=== PATIENT | female | born 1970 | race Asian ===

== ENCOUNTER → 2021-01-08 07:51 | Outpatient (CLI) | payer OTHER, SELFPAY ==
[2021-01-08 09:36] LABS: Add Manual Diff / Slide Review NO; Basophils Absolute Auto 100 /uL (0-100); Basophils Percent Auto 0.9 % (0-2); Eosinophils Absolute Auto 100 /uL (0-450); Eosinophils Percent Auto 1.6 % (2-4); Hematocrit 40.5 % (36-46); Hemoglobin 13.3 g/dL (12.0-16.0); Lymphocytes Absolute Auto 2000 /uL (1100-4500); Lymphocytes Percent Auto 33.8 % (25-40); Mean Corpuscular HGB Conc 32.8 % (30-36); Mean Corpuscular Volume 85.1 fL (80-100); Monocytes Absolute Auto 400 /uL (0-900); Monocytes Percent Auto 6.1 % (3-14); Neutrophils Absolute Auto 3400 /uL (1500-7000); Neutrophils Percent Auto 57.6 % (50-75); Platelet Count 413 X10^3/uL (150-400); Red Blood Cell Count 4.76 X10^6/uL (4.0-5.2); Red Cell Distribution Width 13.7 % (11.6-14.8); White Blood Cell Count 5.9 X10^3/uL (4.5-11.0)
[2021-01-08 09:56] LABS: Alanine Aminotransferase 21 IU/L (<35); Albumin 4.3 g/dL (3.5-5.0); Albumin Globulin Ratio 1.2 (1.0-2.8); Alkaline Phosphatase 88 U/L (38-126); Aspartate Aminotransferase 29 IU/L (14-36); BUN Creatinine Ratio 18.7 (6-22); Bilirubin Total 0.6 mg/dL (0.2-1.3); Blood Urea Nitrogen 14 mg/dL (7-17); Calcium 9.4 mg/dL (8.4-10.2); Carbon Dioxide 31 mmol/L (22-32); Chloride 103 mmol/L (98-107); Cholesterol 216 mg/dL (140-199); Estimated Glomerular Filt Rate > 60.0 mL/min (>60); Globulin 3.6 g/dL (1.7-4.1); Glucose 97 mg/dL (70-100); HDL Cholesterol 60 mg/dL (40-60); HEMOLYSIS < 15 (0-50); LDL Cholesterol Calculated 142 mg/dL (<100); Potassium 4.2 mmol/L (3.4-5.1); Sodium 137 mmol/L (137-145); Total Protein 7.9 g/dL (6.3-8.2); Triglycerides 71 mg/dL (35-150)
[2021-01-10 22:40] LABS: Estrogen 180 pg/mL (.)
[2021-01-24 13:39] LABS: % Free Progesterone 2.5 % (.); Free Progesterone 1.5 ng/dL (.); Progesterone, Serum 59 ng/dL (.)
== END ==
PROVIDERS: PCP Family Medicine; Referring Provider Family Medicine; Visit Provider Family Medicine
DX: R87.619 Unspecified abnormal cytological findings in specimens from cervix uteri (principal); R53.83 Other fatigue; R63.5 Abnormal weight gain; N92.0 Excessive and frequent menstruation with regular cycle
CPT/HCPCS: 36415; 80053; 80061; 82672; 84144; 84443; 84999; 85025

== ENCOUNTER → 2021-01-16 09:04 | Outpatient (CLI) | payer OTHER, SELFPAY ==
--- NOTE | 2021-01-16 09:05 | DI.US.S_ITS ---
PROCEDURE: US PELVIC COMPLETE INDICATIONS: DUB TECHNIQUE: Real-time scanning was performed of the pelvic organs, with image documentation. Additional endovaginal scanning was necessary due to incomplete visualization of the adnexal and endometrial structures by transabdominal scanning. COMPARISON: None. FINDINGS: Uterus: Uterus is enlarged in size at 9.5 x 4.3 x 7.0 cm. The endometrium measures 11.8 mm in combined thickness. There are 2 intramural fibroids, largest measuring 2.5 x 2.1 x 2.6 cm and the smaller 1.6 x 1.2 x 1.7 cm. Ovaries: Normal ovaries measuring 1.6 x 0.9 x 2.1 cm on the right and 2.0 x 1.3 x 2.3 cm on the left. No adnexal masses. Other: No pathologic free abdominal or pelvic fluid. IMPRESSION: Enlarged uterus and there are 2 intramural fibroids, largest measuring up to 2.6 cm. Dictated by: Danyel GARCIA Interpreted: Ivonne Mcmullen MD on 01/16/2021 at 10:39 Approved by: Ivonne Mcmullen M.D. on 01/16/2021 at 10:54
== END ==
PROVIDERS: PCP Family Medicine; Referring Provider Family Medicine; Visit Provider Family Medicine
DX: N92.0 Excessive and frequent menstruation with regular cycle (principal); D25.1 Intramural leiomyoma of uterus; N85.2 Hypertrophy of uterus
CPT/HCPCS: 76830; 76856

== ENCOUNTER → 2021-03-12 10:01 | Outpatient (CLI) | payer OTHER, SELFPAY ==
[2021-03-12 11:57] LABS: Cancer Antigen 125 7.8 U/mL (0-35)
[2021-03-15 00:44] LABS: Human Epididymis Prot 4 47.1 pmol/L (0.0-63.6)
== END ==
PROVIDERS: PCP Family Medicine; Referring Provider Obstetrics & Gynecology; Visit Provider Obstetrics & Gynecology
DX: R10.2 Pelvic and perineal pain (principal)
CPT/HCPCS: 36415; 86304; 86305

== ENCOUNTER → 2021-10-06 09:47 | Outpatient (CLI) | payer OTHER, SELFPAY ==
--- NOTE | 2021-10-06 09:48 | DI.MG.S_ITS ---
BILATERAL DIGITAL SCREENING MAMMOGRAM 3D/2D WITH CAD: 10/06/2021 CLINICAL: Routine screening. Comparison is made to exams dated: 02/16/2020 mammogram, 02/28/2020 mammogram, and 10/16/2020 mammogram - [facility]. The tissue of both breasts is heterogeneously dense. This may lower the sensitivity of mammography. Current study was also evaluated with a Computer Aided Detection (CAD) system. No significant masses, calcifications, or other findings are seen in either breast. There has been no significant interval change. IMPRESSION: NEGATIVE There is no mammographic evidence of malignancy. A 1 year screening mammogram is recommended. This exam was interpreted at Station ID: [id number]. NOTE: For mammograms, a report in lay terms will be sent to the patient. Approximately 15% of breast malignancies will not be visualized mammographically. In the management of a palpable breast mass, a negative mammogram must not discourage biopsy of a clinically suspicious lesion. Electronically Signed By: Clark walters/asad:10/08/2021 09:01:28 letter sent: Normal Exam ACR BI-RADS Category 1: Negative 3341F
== END ==
PROVIDERS: PCP Family Medicine; Referring Provider Family Medicine; Visit Provider Family Medicine
DX: Z12.31 Encounter for screening mammogram for malignant neoplasm of breast (principal)
CPT/HCPCS: 77063; 77067

== ENCOUNTER → 2022-04-30 16:13 | Outpatient (CLI) | payer OTHER, SELFPAY ==
--- NOTE | 2022-04-30 16:18 | DI.RAD.S_ITS ---
PROCEDURE: XR KNEE LT 3V INDICATIONS: chronic left knee pain TECHNIQUE: 3 views of the knee were acquired. COMPARISON: None. FINDINGS: Bones: No fractures or dislocations. No suspicious bony lesions. Soft tissues: No joint effusion. No suspicious soft tissue calcifications. IMPRESSION: No radiographic abnormalities. Dictated by: Veronica Dalal M.D. on 04/30/2022 at 16:49 Approved by: Veronica Dalal M.D. on 04/30/2022 at 16:49
== END ==
PROVIDERS: PCP Family Medicine; Referring Provider Family Medicine; Visit Provider Family Medicine
DX: M25.562 Pain in left knee (principal)
CPT/HCPCS: 73562

== ENCOUNTER → 2022-05-02 12:12 | Outpatient (CLI) | payer OTHER, SELFPAY ==
[2022-05-02 13:18] LABS: Add Manual Diff / Slide Review NO; Basophils Absolute Auto 100 /uL (0-100); Basophils Percent Auto 0.9 % (0-2); Eosinophils Absolute Auto 100 /uL (0-450); Eosinophils Percent Auto 1.4 % (2-4); Hematocrit 38.7 % (36-46); Lymphocytes Absolute Auto 2500 /uL (1100-4500); Lymphocytes Percent Auto 36.3 % (25-40); Mean Corpuscular HGB Conc 33.6 % (30-36); Mean Corpuscular Hemoglobin 28.6 PG (26-34); Monocytes Absolute Auto 500 /uL (0-900); Neutrophils Absolute Auto 3800 /uL (1500-7000); Neutrophils Percent Auto 54.4 % (50-75); Platelet Count 364 X10^3/uL (150-400); Red Blood Cell Count 4.56 X10^6/uL (4.0-5.2); Red Cell Distribution Width 13.3 % (11.6-14.8)
[2022-05-02 13:58] LABS: Erythrocyte Sedimentation Rate 7 MM/HR (0-20)
[2022-05-02 14:31] LABS: Alanine Aminotransferase 30 IU/L (<35); Albumin 4.4 g/dL (3.5-5.0); Albumin Globulin Ratio 1.4 (1.0-2.8); Alkaline Phosphatase 93 U/L (38-126); Aspartate Aminotransferase 36 IU/L (14-36); BUN Creatinine Ratio 22.2 (6-22); Bilirubin Total 0.7 mg/dL (0.2-1.3); Blood Urea Nitrogen 18 mg/dL (7-17); C-Reactive Protein Quant < 0.5 mg/dL (<1.0); Calcium 9.3 mg/dL (8.4-10.2); Carbon Dioxide 26 mmol/L (22-32); Chloride 103 mmol/L (98-107); Cholesterol 235 mg/dL (140-199); Estimated Glomerular Filt Rate > 60 mL/min (>60); Globulin 3.1 g/dL (1.7-4.1); Glucose 90 mg/dL (70-100); HDL Cholesterol 74 mg/dL (40-60); HEMOLYSIS < 15 (0-50); LDL Cholesterol Calculated 148 mg/dL (<100); Potassium 4.5 mmol/L (3.4-5.1); Sodium 137 mmol/L (137-145); Total Protein 7.5 g/dL (6.3-8.2); Triglycerides 63 mg/dL (35-150); Uric Acid 6.4 mg/dL (2.5-6.2)
[2022-05-02 14:33] LABS: Rheumatoid Factor < 8.6 IU/mL (<12.0)
[2022-05-02 14:56] LABS: TSH w/ Reflex to FT4 2.62 uIU/mL (0.47-4.68)
[2022-05-02 15:18] LABS: Creatinine Urine Random 147.8 mg/dL
[2022-05-02 15:23] LABS: Microalbumi Creatinin Ratio Ur 5.4 ug/mg CR (<30); Microalbumin Urine Random 0.8 mg/dL (0-1.6)
[2022-05-06 17:59] LABS: ANA Screen, IFA Positive (.)
== END ==
PROVIDERS: PCP Family Medicine; Referring Provider Family Medicine; Visit Provider Family Medicine
DX: E78.5 Hyperlipidemia, unspecified (principal); K64.9 Unspecified hemorrhoids; N92.1 Excessive and frequent menstruation with irregular cycle; R53.83 Other fatigue; R63.5 Abnormal weight gain; M25.562 Pain in left knee; M79.89 Other specified soft tissue disorders; Z00.00 Encounter for general adult medical examination without abnormal findings
CPT/HCPCS: 36415; 80053; 80061; 82043; 82570; 84443; 84550; 85025; 85651; 86038; 86140; 86430

== ENCOUNTER → 2022-06-26 10:00 | Outpatient (CLI) | payer OTHER, SELFPAY ==
[2022-06-26 10:44] LABS: COVID19 -Nasal RAPID Negative (Negative)
== END ==
PROVIDERS: Family Provider Family Medicine; PCP Family Medicine; Visit Provider Surgery
DX: Z20.822 Contact with and (suspected) exposure to COVID-19 (principal); Z01.812 Encounter for preprocedural laboratory examination
CPT/HCPCS: 87635; C9803

== ENCOUNTER 2022-06-27 10:11 | Day surgery (SDC) | payer OTHER, SELFPAY ==
[2022-06-27] VITALS (7 sets, daily range): BP systolic 102–134; BP diastolic 62–88; PULSE 58–94; RESP 13–20; TEMP 36.6–36.9; O2SAT 96–99; BMI 22.8
[2022-06-27] MEDS: LACTATED RINGERS 1,000 ML 42 ML IV (10:40)
--- NOTE | 2022-06-27 11:14 | PM.HP.1 ---
History of Present Illness History of Present Illness Date Patient Seen: 06/27/22 Time Patient Seen: 11:15 Chief complaint: Colonoscopy Narrative: Laura is a 52-year-old woman who is here for a screening colonoscopy. She is never had a colonoscopy before. She is no known family history of colon cancer. She denies rectal bleeding or melena. Patient History Medical History Abnormal Pap smear of cervix Hemorrhoid Menorrhagia Uterine fibroid Vaginal delivery Surgical History History of tonsillectomy Family & Social History Family History Mother Afib Social History: household members spouse Tobacco & Substance use: Smoking Status Never smoker alcohol intake current alcohol intake frequency holiday/special occasion Substance Use Type does not use Meds Home Medications and Allergies Home Medications Medication Instructions Recorded Confirmed Type ibuprofen 600 mg tablet 600 mg PO Q8H PRN Pain (Scale 01/04/21 06/27/22 History Score 1-3) fexofenadine 60 mg tablet (Nurys 60 mg PO DAILY PRN allergy 04/12/22 06/27/22 Rx Allergy) symptoms #90 tabs fluticasone propionate 50 2 spray intranasal DAILY PRN 04/30/22 06/27/22 Rx mcg/actuation nasal allergy symptoms #16 grams spray,suspension (Flonase Allergy Relief) meloxicam 15 mg tablet 15 mg PO DAILY 06/27/22 06/27/22 History Allergies Allergy/AdvReac Type Severity Reaction Status Date / Time amoxicillin AdvReac Mild Verified 06/27/22 10:28 cefaclor [From Ceclor] AdvReac Verified 06/27/22 10:28 Sulfa (Sulfonamide AdvReac Verified 06/27/22 10:28 Antibiotics) Exam Vital Signs (past 8 hours): - 06/27/22 10:30 Temperature 98.5 F Pulse Rate 92 H Respiratory Rate 16 Blood Pressure 134/88 Pulse Oximetry 96 Oxygen Delivery Method Room Air Oxygen Flow Rate 0 Oxygen Delivery Method Room Air Oxygen Flow Rate 0 Const General: healthy appearing Resp Effort & Inspection: normal respiratory effort GI Palpation: soft Assessment & Plan Assessment and plan (1) Colon cancer screening: Status: Acute Plan 52-year-old woman who is due for colon cancer screening. Reviewed the risks and benefits of colonoscopy and she would like to proceed. Time Spent With Patient Critical Care time: I spent a total of [] minutes of critical care time on this patient's care today; this time is exclusive of procedural time.
[2022-06-27] MEDS: MIDAZOLAM 5 MG/5 ML VIAL 6 MG IV (11:26)
[2022-06-27] MEDS: fentaNYL 250 MCG/5 ML INJ 150 MCG IV (11:32)
--- NOTE | 2022-06-27 11:45 | PM.OP.COLON ---
Operative Date/Time/Diagnoses Date of procedure: 06/27/22 Time of procedure: 11:45 Pre-op diagnosis: Colon cancer screening Post-op diagnosis: same Procedure & Clinicians Study performed: Colonoscopy Same procedure as scheduled: Yes Surgeon: Jeffrey Joshi Procedure Notes Procedure in detail: Surgeon: Jeffrey Joshi MD Procedure: The patient was brought to the endoscopy suite, placed in left lateral decubitus position. The patient was connected to monitoring devices. A time-out was performed. Sedation was administered. Once the patient was adequately sedated, a digital rectal exam was performed and was normal. The scope was then inserted and advanced to the cecum where the appendiceal orifice was identified and photographed. The scope was then slowly withdrawn over greater than 6 minutes. The mucosa was thoroughly inspected. No abnormalities were noted. The scope was retroflexed in the rectum. No abnormalities were noted. The scope was straightened and removed. The patient was awakened and brought to recovery. Versed: 6 mg Fentanyl: 150 mcg EBL: 0 Findings: Normal colon Scope withdrawal time: 6 Sedation minutes: 20 Post-procedure Recommendations: Colonoscopy in 10 years Disposition: PACU
== END 2022-06-27 12:40 | disposition home or self-care (01) ==
PROVIDERS: Family Provider Family Medicine; PCP Family Medicine; Referring Provider Surgery; Visit Provider Surgery
PROC: 0DJD8ZZ Inspection of Lower Intestinal Tract, Via Natural or Artificial Opening Endoscopic (ICD-10-PCS; CPT 45378; principal; 2022-06-27 11:30)
DX: Z12.11 Encounter for screening for malignant neoplasm of colon (principal)
CPT/HCPCS: 45378; 99152; J2250; J3010

== ENCOUNTER → 2022-08-08 12:06 | Outpatient (CLI) | payer OTHER, SELFPAY ==
--- NOTE | 2022-08-08 12:08 | DI.RAD.S_ITS ---
PROCEDURE: XR KNEE RT 3V INDICATIONS: R KNEE PAIN/SWELLING TECHNIQUE: 3 views of the knee were acquired. COMPARISON: [facility], CR, XR KNEE LT 3V, 04/30/2022, 16:10. FINDINGS: Bones: No fractures or dislocations. No suspicious bony lesions. Soft tissues: No joint effusion. No suspicious soft tissue calcifications. IMPRESSION: No acute osseous abnormality. If symptoms persist, follow-up radiographs and/or CT or MRI may be helpful for further evaluation. Dictated by: Fitz Hutton M.D. on 08/08/2022 at 21:51 Approved by: Fitz Hutton M.D. on 08/08/2022 at 21:57
== END ==
PROVIDERS: Family Provider Family Medicine; PCP Family Medicine; Referring Provider Family Medicine; Visit Provider Family Medicine
DX: M25.561 Pain in right knee (principal); M25.461 Effusion, right knee
CPT/HCPCS: 73562

== ENCOUNTER 2022-08-20 10:30 | Outpatient (RCR) | payer OTHER, SELFPAY ==
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
== END 2022-08-23 09:18 | disposition home or self-care (01) ==
LOC: PHYS 10:30
PROVIDERS: Family Provider Family Medicine; PCP Family Medicine; Referring Provider Family Medicine; Visit Provider Family Medicine
DX: M25.562 Pain in left knee (principal); R53.1 Weakness; R26.2 Difficulty in walking, not elsewhere classified
CPT/HCPCS: 97010; 97110; 97112; 97140; 97162; 97535

== ENCOUNTER → 2022-09-28 09:01 | Outpatient (CLI) | payer OTHER, SELFPAY ==
--- NOTE | 2022-09-28 09:05 | DI.MRI.S_ITS ---
PROCEDURE: MR KNEE RT WO CON INDICATIONS: R knee pain TECHNIQUE: Noncontrast sagittal PD fast spin echo and T2 fast spin echo with fat saturation, sagittal 3-D FLASH with fat saturation; coronal T1 spin echo and PD fast spin echo with fat saturation, and axial PD fast spin echo with fat saturation through the knee. COMPARISON: [facility], CR, XR KNEE RT 3V, 08/08/2022, 12:20. FINDINGS: Image quality: Excellent. Menisci: There is mild ill-defined T2 signal elevation at the posterior meniscal capsular junction of the posterior horn medial meniscus. Medial and lateral menisci are otherwise within normal limits. Cruciate ligaments: The anterior and posterior cruciate ligaments appear intact. Medial structures: The medial collateral ligament appears intact. Visualized portions of the pes anserinus tendons appear normal. No abnormal bursal fluid. Lateral structures: The lateral collateral ligament, long and short heads of the biceps femoris tendon appear intact. The popliteus tendon appears normal. Iliotibial band appears normal. Anterior structures: The quadriceps and patellar tendons appear intact. Patellar alignment is normal. No femoral trochlear dysplasia or ventral trochlear prominence. No edema in the infrapatellar fat pad. Bones and cartilage: No bone marrow contusions or fractures. The cartilage of the medial and lateral femorotibial compartments, as well as the patellofemoral compartment, appears normal in thickness. Joint space: There is physiologic knee joint fluid. No Damon's cyst. Normal appearing synovial plicae are incidentally noted. IMPRESSION: 1. Meniscal capsular junction injury involving the medial meniscus. 2. Otherwise negative examination. Dictated by: Tadeo Wood M.D. on 09/30/2022 at 9:08 Approved by: Tadeo Wood M.D. on 09/30/2022 at 9:09
--- NOTE | 2022-09-28 09:05 | DI.MRI.S_ITS ---
PROCEDURE: MR KNEE LT WO CON INDICATIONS: unresolving pain with therapy TECHNIQUE: Noncontrast sagittal PD fast spin echo and T2 fast spin echo with fat saturation, sagittal 3-D FLASH with fat saturation; coronal T1 spin echo and PD fast spin echo with fat saturation, and axial PD fast spin echo with fat saturation through the knee. COMPARISON: [facility], CR, XR KNEE LT 3V, 04/30/2022, 16:10. FINDINGS: Image quality: Excellent. Menisci: There is mild T2 signal elevation at the posterior meniscal capsular junction of the posterior horn medial meniscus. Medial meniscus is otherwise within normal limits. There is truncation of the free edge of the lateral meniscal body, consistent with radial tearing. Cruciate ligaments: The anterior and posterior cruciate ligaments appear intact. Medial structures: The medial collateral ligament appears intact. Visualized portions of the pes anserinus tendons appear normal. No abnormal bursal fluid. Lateral structures: The lateral collateral ligament, long and short heads of the biceps femoris tendon appear intact. The popliteus tendon appears normal. Iliotibial band appears normal. Anterior structures: The quadriceps and patellar tendons appear intact. Patellar alignment is normal. No femoral trochlear dysplasia or ventral trochlear prominence. No edema in the infrapatellar fat pad. Bones and cartilage: No bone marrow contusions or fractures. The cartilage of the medial and lateral femorotibial compartments, as well as the patellofemoral compartment, appears normal in thickness. Joint space: There is physiologic knee joint fluid. No Damon's cyst. Normal appearing synovial plicae are incidentally noted. IMPRESSION: 1. Meniscal capsular junction injury involving the medial meniscus. 2. Radial tearing of the free edge of the lateral meniscal body. Dictated by: Tadeo Wood M.D. on 09/30/2022 at 9:10 Approved by: Tadeo Wood M.D. on 09/30/2022 at 9:11
== END ==
PROVIDERS: Family Provider Family Medicine; PCP Family Medicine; Referring Provider Family Medicine; Visit Provider Family Medicine
DX: S83.8X2A Sprain of other specified parts of left knee, initial encounter (principal); S83.8X1A Sprain of other specified parts of right knee, initial encounter; S83.282A Other tear of lateral meniscus, current injury, left knee, initial encounter; M25.562 Pain in left knee; M25.561 Pain in right knee; X58.XXXA Exposure to other specified factors, initial encounter
CPT/HCPCS: 73721

== ENCOUNTER 2022-10-03 09:45 | Outpatient (RCR) | payer OTHER, SELFPAY ==
--- NOTE | 2022-09-03 11:15 | PT.OPPOC ---
Physical, Occupational & Speech Therapy At [facility] Current Diagnoses Polyosteoarthritis, unspecified (09/03/22) Hypermobility syndrome (09/03/22) Fibromyalgia (09/03/22) Visit Care Team Role Provider Type Marquise Emmanuel MD Family Provider Physician Primary Care Provider Specialty: Family Practice Address: [address] [place] [address], [id number] Email: [email or web address] Jann Haider MD Attending Provider Non-Staff Referring Provider Specialty: Rheumatology Address: [address] [place] [address], [place], [address] Email: Plan Of Care PT-OP-T Assessment and Plan Start: 09/03/22 11:08 Freq: Status: Active Protocol: Document 09/03/22 11:15 MARGI (Rec: 09/03/22 12:14 [facility] [id number]) Physical Therapy Assessment Rehab Potential Rehabilitation Potential Good Evaluation Complexity Number of Personal Factors/Comorbidities 1-2 Number of Body Systems Impaired 3 Clinical Presentation at Evaluation Evolving Impairments Impairments Activity Tolerance,Pain, Strength Other Impairments hypermobility Goals proprioception impairment Impairment contributes to joint instability Bag Press Operator Goal (LTG) improve proprioception and balance as evidenced by patient ability to stand on 1 foot for 20 sec with eyes closed without knee hyperextension as evidenced of improved functional proprioception for joint stability LTG Duration 12/04/21 Three Impairment core muscle weakness Short Term Goal (STG) Patient to be instructed in HEP for purposes of core muscle strengthening and stabilization STG Duration 10/15/22 Bag Press Operator Goal (LTG) Patient to be independent and compliant with HEP and demonstrate improved strength and core stabilization statically and dynamically with functional activities LTG Duration 12/04/21 Two Impairment hyperextension elisa knees Bag Press Operator Goal (LTG) Patient to demonstrate a 75% reduction in habitual knee hyperextension in standing and walking to decrease stress on knees and allow increased tolerance for standing and walking [ End ] LTG Duration 12/04/21 One Impairment hypermobility throughout with impaired joint stability Short Term Goal (STG) Patient to be instructed in HEP to address hypermobility and impaired stability Bag Press Operator Goal (LTG) Patient to be independent and compliant with HEP, demonstrate improved joint stability and report decreased pain LTG Duration 12/04/21 strength Impairment weakness elisa LE's worst in hip ER and hip ext Bag Press Operator Goal (LTG) 5/5 muscle strength elisa LE's for purposes of joint stabilization LTG Duration 12/04/21 Physical Therapy Plan Frequency and Duration Frequency of Treatment 2x/Week Duration of treatment (weeks) 12 Plan of Care Start Date 09/03/22 Plan of Care End Date 12/04/21 Therapeutic Interventions Therapeutic Interventions Aquatic Therapy,Home Exercise Program,Manual Therapy, Neuromuscular Re-education, Patient/Caregiver Education, Self-Care/Home Management,Soft Tissue Mobilization,Taping, Therapeutic Activities, Therapeutic Exercises Modalities Cold Pack/Ice Massage,Electric Stimulation,Hot Packs, Ultrasound Next Visit Focus/Plan Next Note Type Treatment Note Next Visit Plan Review HEP, start supine DLS on 1/2 foam roller, progress with balance and proprioception. Plan of Care Dates Plan of Care Start Date 09/03/22 Plan of Care End Date 12/04/21 Electronically Signed by: Karo Avilez, PT 09/04/22 [id number] If you are in agreement with this Plan of Care, please return a signed and dated copy. I have reviewed this Plan of Care and certify that the skilled therapy services above are required to meet the patient?s needs. Physician Signature Date Printed Name and Credentials Clinical Instructor Signature Printed Name and Credentials
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
== END 2023-07-11 15:45 ==
LOC: PHYS 09:45
PROVIDERS: Family Provider Family Medicine; PCP Family Medicine; Referring Provider Internal Medicine Rheumatology; Visit Provider Internal Medicine Rheumatology
DX: M15.9 Polyosteoarthritis, unspecified (principal); M79.7 Fibromyalgia; M35.7 Hypermobility syndrome
CPT/HCPCS: 97110; 97112; 97140; 97162; 97530; 97535

== ENCOUNTER → 2022-10-14 09:08 | Outpatient (CLI) | payer OTHER, SELFPAY ==
--- NOTE | 2022-10-14 09:09 | DI.MG.S_ITS ---
BILATERAL DIGITAL SCREENING MAMMOGRAM 3D/2D WITH CAD: 10/14/2022 CLINICAL: Routine screening. Comparison is made to exams dated: 10/06/2021 mammogram - [facility], 10/16/2020 mammogram, and [facility]. Both breasts are heterogeneously dense, which may obscure small masses (category c / 51-75% glandular tissue). Current study was also evaluated with a Computer Aided Detection (CAD) system. No significant masses, calcifications, or other findings are seen in either breast. There has been no significant interval change. IMPRESSION: NEGATIVE There is no mammographic evidence of malignancy. A 1 year screening mammogram is recommended. Based on the Tyrer Cuzick model (a risk assessment model) the patient's lifetime risk is 10.1% and her 10 year risk is 2.4%. According to the ACR, ACS, and NCCN guidelines, an annual breast MRI exam along with mammogram is recommended if the patient's lifetime risk is 20% or greater. This exam was interpreted at Station ID: [id number]. NOTE: For mammograms, a report in lay terms will be sent to the patient. Approximately 15% of breast malignancies will not be visualized mammographically. In the management of a palpable breast mass, a negative mammogram must not discourage biopsy of a clinically suspicious lesion. Electronically Signed By: Chandana rosas/asad:10/14/2022 15:17:58 letter sent: Normal Exam ACR BI-RADS Category 1: Negative [id number]
== END ==
PROVIDERS: Family Provider Family Medicine; PCP Family Medicine; Referring Provider Family Medicine; Visit Provider Family Medicine
DX: Z12.31 Encounter for screening mammogram for malignant neoplasm of breast (principal)
CPT/HCPCS: 77063; 77067

== ENCOUNTER → 2023-04-10 11:13 | Outpatient (CLI) | payer BC, OTHER, SELFPAY ==
--- NOTE | 2023-04-10 11:15 | DI.RAD.S_ITS ---
PROCEDURE: XR SHOULDER LT MIN 2V INDICATIONS: pain TECHNIQUE: 3 views of the shoulder were acquired. COMPARISON: None. FINDINGS: Bones: No fractures or dislocations. No suspicious bony lesions. Visualized ribs appear intact. Soft tissues: No suspicious soft tissue calcifications. IMPRESSION: Left shoulder without acute fracture or dislocation. No significant degenerative changes. If there are persistent symptoms or clinical suspicion for pathology, then repeat radiographs or advanced imaging (CT or MRI) may be considered for further evaluation. Dictated by: Aditya Ace M.D. on 04/10/2023 at 14:29 Approved by: Aditya Ace M.D. on 04/10/2023 at 14:30
== END ==
PROVIDERS: Family Provider Family Medicine; PCP Family Medicine; Referring Provider Nurse Practitioner Family; Visit Provider Nurse Practitioner Family
DX: M25.512 Pain in left shoulder (principal)
CPT/HCPCS: 73030

== ENCOUNTER → 2023-05-21 08:47 | Outpatient (CLI) | payer BC, OTHER, SELFPAY ==
--- NOTE | 2023-05-21 | DI.MRI.S_ITS ---
PROCEDURE: MR SHOULDER LT WO CON INDICATIONS: Impingement syndrome of left shoulder TECHNIQUE: Noncontrast oblique coronal T2 fast spin echo with fat saturation, oblique sagittal T1 spin echo and T2 fast spin echo with fat saturation, axial T1 spin echo and T2 fast spin echo with fat saturation through the shoulder. COMPARISON: [facility], CR, XR SHOULDER 2+ VIEWS LEFT, 04/23/2023, 12:25. FINDINGS: Image quality: Excellent. Rotator cuff: There is mild T2 signal elevation diffusely throughout the supraspinatus and infraspinatus tendons at the humeral insertion sites extending the musculotendinous junctions, indicating tendinopathy. No evidence of tearing involving the supraspinatus, infraspinatus, or teres minor tendons. Low-grade intrasubstance tearing of the upper subscapularis tendon at the humeral insertion site extending to the musculotendinous junction. Bones and bursae: No bone marrow contusions or fractures. Mild acromioclavicular joint degeneration. The acromion demonstrates conventional anatomy, without an os acromiale. No pathologic subacromial-subdeltoid or subcoracoid bursal fluid is present. Capsule and soft tissues: Labrum is grossly intact The long head of the biceps tendon demonstrates normal location and morphology. The rotator interval appears normal, without fibrosis. The coracohumeral ligament is normal in thickness. IMPRESSION: 1. Low-grade tearing of the subscapularis tendon. 2. Supraspinatus and infraspinatus tendinopathy without evidence of superimposed tear. 3. Mild acromioclavicular joint osteoarthritis. Dictated by: Tadeo Wood M.D. on 05/21/2023 at 10:14 Approved by: Tadeo Wood M.D. on 05/21/2023 at 10:16
== END ==
PROVIDERS: Family Provider Family Medicine; PCP Family Medicine; Referring Provider Orthopaedic Surgery; Visit Provider Orthopaedic Surgery
DX: M75.112 Incomplete rotator cuff tear or rupture of left shoulder, not specified as traumatic (principal); M75.42 Impingement syndrome of left shoulder; M67.922 Unspecified disorder of synovium and tendon, left upper arm; M67.912 Unspecified disorder of synovium and tendon, left shoulder; M19.012 Primary osteoarthritis, left shoulder
CPT/HCPCS: 73221

== ENCOUNTER → 2023-05-27 09:05 | Outpatient (CLI) | payer BC, OTHER, SELFPAY ==
--- NOTE | 2023-05-27 09:12 | DI.RAD.S_ITS ---
PROCEDURE: XR WRIST RT MIN 3V INDICATIONS: right wrist pain TECHNIQUE: 4 views of the wrist were acquired. COMPARISON: None. FINDINGS: Bones: No fractures or dislocations. No suspicious bony lesions. Soft tissues: No suspicious soft tissue calcifications. IMPRESSION: Unremarkable right wrist radiographs Approved by: Serafin Mckeon M.D. on 05/27/2023 at 16:15
[2023-05-27 10:12] LABS: Alanine Aminotransferase 43 IU/L (<35); Albumin 4.4 g/dL (3.5-5.0); Albumin Globulin Ratio 1.3 (1.0-2.8); Alkaline Phosphatase 90 U/L (38-126); Aspartate Aminotransferase 34 IU/L (14-36); BUN Creatinine Ratio 28.4 (6-22); Bilirubin Total 0.6 mg/dL (0.2-1.3); Blood Urea Nitrogen 21 mg/dL (7-17); Calcium 9.3 mg/dL (8.4-10.2); Carbon Dioxide 28 mmol/L (22-32); Chloride 105 mmol/L (98-107); Cholesterol 270 mg/dL (140-199); Estimated Glomerular Filt Rate > 60 mL/min (>60); Globulin 3.5 g/dL (1.7-4.1); Glucose 97 mg/dL (70-100); HDL Cholesterol 68 mg/dL (40-60); HEMOLYSIS < 15 (0-50); LDL Cholesterol Calculated 179 mg/dL (<100); Potassium 4.6 mmol/L (3.4-5.1); Sodium 140 mmol/L (137-145); Total Protein 7.9 g/dL (6.3-8.2); Triglycerides 116 mg/dL (35-150)
[2023-05-27 10:21] LABS: Add Manual Diff / Slide Review NO; Basophils Absolute Auto 100 /uL (0-100); Basophils Percent Auto 1.2 % (0-2); Eosinophils Absolute Auto 200 /uL (0-450); Eosinophils Percent Auto 3.4 % (2-4); Hematocrit 37.8 % (36-46); Hemoglobin 12.6 g/dL (12.0-16.0); Lymphocytes Absolute Auto 2700 /uL (1100-4500); Lymphocytes Percent Auto 47.4 % (25-40); Mean Corpuscular HGB Conc 33.2 % (30-36); Mean Corpuscular Hemoglobin 28.5 PG (26-34); Mean Corpuscular Volume 85.9 fL (80-100); Monocytes Absolute Auto 300 /uL (0-900); Monocytes Percent Auto 5.3 % (3-14); Neutrophils Absolute Auto 2500 /uL (1500-7000); Neutrophils Percent Auto 42.7 % (50-75); Platelet Count 365 X10^3/uL (150-400); Red Cell Distribution Width 13.7 % (11.6-14.8); White Blood Cell Count 5.8 X10^3/uL (4.5-11.0)
[2023-05-27 10:27] LABS: Vitamin D 25 Hydroxy (D3) 23.9 ng/mL (30.0-100.0)
[2023-05-27 10:59] LABS: Vitamin B12 408 pg/mL (239-931)
[2023-05-27 11:10] LABS: Hep C Virus Ab w/Reflex Quant NEGATIVE s/c (NEGATIVE)
== END ==
PROVIDERS: Family Provider Family Medicine; PCP Family Medicine; Referring Provider Family Medicine; Visit Provider Family Medicine
DX: M25.531 Pain in right wrist; M17.9 Osteoarthritis of knee, unspecified; M25.562 Pain in left knee; M79.7 Fibromyalgia; N92.0 Excessive and frequent menstruation with regular cycle; R53.83 Other fatigue
CPT/HCPCS: 36415; 73110; 80053; 80061; 82306; 82607; 84443; 85025; 86803

== ENCOUNTER → 2023-10-17 08:35 | Outpatient (CLI) | payer BC, OTHER, SELFPAY ==
--- NOTE | 2023-10-17 08:36 | DI.MG.S_ITS ---
BILATERAL DIGITAL SCREENING MAMMOGRAM 3D/2D WITH CAD: 10/17/2023 CLINICAL: Routine screening. Comparison is made to exams dated: 10/14/2022 mammogram, 10/06/2021 mammogram - [facility], and 10/16/2020 mammogram - [facility]. Both breasts are heterogeneously dense, which may obscure small masses (category c / 51-75% glandular tissue). Current study was also evaluated with a Computer Aided Detection (CAD) system. No significant masses, calcifications, or other findings are seen in either breast. There has been no significant interval change. IMPRESSION: NEGATIVE There is no mammographic evidence of malignancy. A 1 year screening mammogram is recommended. Based on the Tyrer Cuzick model (a risk assessment model) the patient's lifetime risk is 10.1% and her 10 year risk is 2.5%. According to the ACR, ACS, and NCCN guidelines, an annual breast MRI exam along with mammogram is recommended if the patient's lifetime risk is 20% or greater. This exam was interpreted at Station ID: [id number]. NOTE: For mammograms, a report in lay terms will be sent to the patient. Approximately 15% of breast malignancies will not be visualized mammographically. In the management of a palpable breast mass, a negative mammogram must not discourage biopsy of a clinically suspicious lesion. Electronically Signed By: Aditya fuller/asad:10/17/2023 19:45:51 letter sent: Normal Exam ACR BI-RADS Category 1: Negative [id number]
== END ==
PROVIDERS: Family Provider Family Medicine; PCP Family Medicine; Referring Provider Family Medicine; Visit Provider Family Medicine
DX: Z12.31 Encounter for screening mammogram for malignant neoplasm of breast (principal)
CPT/HCPCS: 77063; 77067

== ENCOUNTER → 2024-05-11 09:41 | Outpatient (CLI) | payer BC, OTHER, SELFPAY ==
[2024-05-11 11:25] LABS: Add Manual Diff / Slide Review NO; Basophils Absolute Auto 100 /uL (0-100); Basophils Percent Auto 0.9 % (0-2); Eosinophils Absolute Auto 100 /uL (0-450); Eosinophils Percent Auto 1.9 % (2-4); Hematocrit 40.3 % (36-46); Hemoglobin 13.4 g/dL (12.0-16.0); Lymphocytes Absolute Auto 2500 /uL (1100-4500); Mean Corpuscular HGB Conc 33.3 % (30-36); Mean Corpuscular Hemoglobin 28.3 PG (26-34); Monocytes Absolute Auto 400 /uL (0-900); Monocytes Percent Auto 5.9 % (3-14); Neutrophils Absolute Auto 3100 /uL (1500-7000); Neutrophils Percent Auto 50.3 % (50-75); Platelet Count 384 X10^3/uL (150-400); Red Blood Cell Count 4.73 X10^6/uL (4.0-5.2); Red Cell Distribution Width 13.3 % (11.6-14.8); White Blood Cell Count 6.1 X10^3/uL (4.5-11.0)
[2024-05-11 11:50] LABS: Alanine Aminotransferase 15 IU/L (<35); Albumin 4.5 g/dL (3.5-5.0); Albumin Globulin Ratio 1.3 (1.0-2.8); Alkaline Phosphatase 93 U/L (38-126); Aspartate Aminotransferase 27 IU/L (14-36); BUN Creatinine Ratio 16.7 (6-22); Bilirubin Total 0.8 mg/dL (0.2-1.3); Blood Urea Nitrogen 14 mg/dL (7-17); Calcium 9.5 mg/dL (8.4-10.2); Carbon Dioxide 31 mmol/L (22-32); Chloride 104 mmol/L (98-107); Cholesterol 243 mg/dL (140-199); Estimated Glomerular Filt Rate > 60 mL/min (>60); Globulin 3.5 g/dL (1.7-4.1); Glucose 100 mg/dL (70-100); HDL Cholesterol 66 mg/dL (40-60); HEMOLYSIS < 15 (0-50); LDL Cholesterol Calculated 149 mg/dL (<100); Potassium 4.5 mmol/L (3.4-5.1); Sodium 140 mmol/L (137-145); Triglycerides 142 mg/dL (35-150)
[2024-05-11 12:17] LABS: Vitamin D 25 Hydroxy (D3) 36.9 ng/mL (30.0-100.0)
[2024-05-11 12:21] LABS: TSH w/ Reflex to FT4 2.71 uIU/mL (0.47-4.68)
[2024-05-13 04:10] LABS: Apolipoprotein B 99 mg/dL (<90)
== END ==
PROVIDERS: Family Provider Family Medicine; PCP Family Medicine; Referring Provider Physician Assistant; Visit Provider Physician Assistant
DX: Z00.00 Encounter for general adult medical examination without abnormal findings (principal); Z13.220 Encounter for screening for lipoid disorders; Z13.6 Encounter for screening for cardiovascular disorders; R53.83 Other fatigue; E55.9 Vitamin D deficiency, unspecified; Z82.49 Family history of ischemic heart disease and other diseases of the circulatory system
CPT/HCPCS: 36415; 80053; 80061; 82172; 82306; 83695; 84443; 85025

== ENCOUNTER → 2024-05-14 12:45 | Outpatient (CLI) | payer BC, OTHER, SELFPAY ==
--- NOTE | 2024-05-14 12:46 | DI.US.S_ITS ---
PROCEDURE: US PELVIC COMPLETE INDICATIONS: Pelvic heaviness; hx of fibroids TECHNIQUE: Real-time scanning was performed of the pelvic organs, with image documentation. Additional endovaginal scanning was necessary due to incomplete visualization of the adnexal and endometrial structures by transabdominal scanning. COMPARISON: [facility], US, US PELVIC COMPLETE, 01/16/2021, 9:45. FINDINGS: Uterus: Uterus is anteverted and normal in size at 8.1 x 5.2 x 3.4 cm. The myometrium is heterogeneous. The endometrium measures 5 mm combined thickness. Mid posterior intramural fibroid measuring 1.4 x 1.4 x 1.2 cm. Right fundal intramural fibroid measuring 1.6 x 1.6 x 1.5 cm. Ovaries: The right ovary measures 1.5 x 0.9 x 0.6 cm, with a calculated ovarian volume of 1 cc. The left ovary is not seen. No significant cyst. Less than 12 follicles on the right. Other: No pathologic free abdominal or pelvic fluid. IMPRESSION: 1. Endometrium measures 5 mm. 2. Small intramural fibroids x2. 3. Left ovary is not seen. No significant ovarian cyst seen. We strive to produce accurate, complete, and clear reports of imaging services. To assist us in improving patient care, this report was composed using standard report templates and voice recognition software. Therefore, it may contain abnormal punctuation, insertions and/or omissions. Occasional wrong-word or sound-alike substitutions may occur. Though we review the report and make efforts to correct it, we do recommend that the report be read carefully in proper context to recognize any text inaccuracies. Dictated by: Chandana Cabezas M.D. on 05/14/2024 at 22:13 Approved by: Chandana Cabezas M.D. on 05/14/2024 at 22:16
--- NOTE | 2024-05-14 12:46 | DI.RAD.S_ITS ---
PROCEDURE: FL BARIUM SWALLOW INDICATIONS: Difficulty swallowing COMPARISON: None. FINDINGS: Function: There is normal esophageal peristalsis. No elicited gastroesophageal reflux. There is normal transit of a calibrated barium tablet through the esophagus into the stomach. Morphology: Air-contrast images demonstrate normal mucosal morphology. Single contrast views show no esophageal strictures, extrinsic mass effects, or diverticula. Limited images of the stomach demonstrate normal appearance. IMPRESSION: Normal esophagram. Dictated by: Edmar Sharp M.D. on 05/14/2024 at 16:29 Approved by: Edmar Sharp M.D. on 05/14/2024 at 16:30
== END ==
LOC: US 12:45
PROVIDERS: Family Provider Family Medicine; PCP Family Medicine; Referring Provider Physician Assistant; Visit Provider Physician Assistant
DX: R13.10 Dysphagia, unspecified (principal); D25.1 Intramural leiomyoma of uterus; R10.2 Pelvic and perineal pain; Z86.018 Personal history of other benign neoplasm
CPT/HCPCS: 74220; 76856

== ENCOUNTER → 2024-07-13 07:47 | Outpatient (CLI) | payer OTHER, SELFPAY ==
--- NOTE | 2024-07-13 18:20 | DI.NM.S_ITS ---
DATE OF SERVICE: 07/13/2024 PROCEDURE: Exercise stress test. INDICATIONS: Shortness of breath. CARDIAC STRESS: The patient underwent exercise stress test under the supervision of an attending staff using standard Butch protocol. She walked on Butch protocol for 7 minutes and 19 seconds, achieved maximum heart rate of 172, which was 102% of target heart rate. Resting blood pressure 133/100 and peak blood pressure 180/88 mmHg. SILVERIO positive 4%. Achieved 7.3 METs of workload. Baseline rhythm is sinus with nonspecific ST-T changes. During stress, patient remained having nonspecific ST-T changes including some horizontal upsloping ST depression in inferior leads in V4 to V6, but not convincing for inducible ischemia. Occasional PVCs including rare ventricular couplets. No ventricular tachycardia. She had shortness of breath during exercise. CONCLUSION: Exercise stress test did not reveal any convincing ischemic changes. The patient has baseline nonspecific ST-T changes which remained persistent during stress. Diminished exercise tolerance. Normal hemodynamic response. Occasional PVCs including rare ventricular couplets. No ventricular tachycardia. She had shortness of breath on exertion. Laura Zhong - OSMAR/naz/JESSICA doc#: [id number]/job#: [id number] dd: 07/13/2024 16:38:00 dt: 07/13/2024 18:10:00 DICTATING /COPIES TO: Cheryl Gomez MD COPIES MNE: TATIANA;
== END ==
PROVIDERS: Family Provider Family Medicine; PCP Family Medicine; Referring Provider Family Medicine; Visit Provider Family Medicine
DX: R53.83 Other fatigue (principal); R06.09 Other forms of dyspnea; R07.89 Other chest pain; E78.5 Hyperlipidemia, unspecified
CPT/HCPCS: 93017

== ENCOUNTER → 2024-10-18 08:11 | Outpatient (CLI) | payer OTHER, SELFPAY ==
--- NOTE | 2024-10-18 08:12 | DI.MG.S_ITS ---
BILATERAL DIGITAL SCREENING MAMMOGRAM 3D/2D WITH CAD: 10/18/2024 CLINICAL: Routine screening. Comparison is made to exams dated: 10/17/2023 mammogram, 10/14/2022 mammogram, and 10/06/2021 mammogram - [facility]. There are scattered areas of fibroglandular density (category b / 25%-50% glandular tissue). Current study was also evaluated with a Computer Aided Detection (CAD) system. No significant masses, calcifications, or other findings are seen in either breast. There has been no significant interval change. IMPRESSION: NEGATIVE There is no mammographic evidence of malignancy. A 1 year screening mammogram is recommended. Based on the Tyrer Cuzick model (a risk assessment model) the patient's lifetime risk is 6.8% and her 10 year risk is 1.7%. According to the ACR, ACS, and NCCN guidelines, an annual breast MRI exam along with mammogram is recommended if the patient's lifetime risk is 20% or greater. This exam was interpreted at Station ID: [id number]. NOTE: For mammograms, a report in lay terms will be sent to the patient. Approximately 15% of breast malignancies will not be visualized mammographically. In the management of a palpable breast mass, a negative mammogram must not discourage biopsy of a clinically suspicious lesion. Electronically Signed By: Aditya fuller/asad:10/18/2024 16:39:21 letter sent: Normal Exam ACR BI-RADS Category 1: Negative
== END ==
PROVIDERS: Family Provider Family Medicine; PCP Family Medicine; Referring Provider Family Medicine; Visit Provider Family Medicine
DX: Z12.31 Encounter for screening mammogram for malignant neoplasm of breast (principal)
CPT/HCPCS: 77063; 77067

== ENCOUNTER → 2025-06-14 08:07 | Outpatient (CLI) | payer OTHER, SELFPAY ==
[2025-06-14 09:08] LABS: Hematocrit 39.7 % (36-46); Hemoglobin 13.2 g/dL (12.0-16.0); Mean Corpuscular HGB Conc 33.3 % (30-36); Mean Corpuscular Hemoglobin 28.6 PG (26-34); Mean Corpuscular Volume 85.8 fL (80-100); Platelet Count 392 X10^3/uL (150-400)
[2025-06-14 09:30] LABS: Alanine Aminotransferase 21 IU/L (<35); Albumin 4.3 g/dL (3.5-5.0); Albumin Globulin Ratio 1.3 (1.0-2.8); Alkaline Phosphatase 104 U/L (38-126); Blood Urea Nitrogen 24 mg/dL (7-17); Calcium 9.8 mg/dL (8.4-10.2); Carbon Dioxide 25 mmol/L (22-32); Chloride 103 mmol/L (98-107); Cholesterol 237 mg/dL (140-199); Estimated Glomerular Filt Rate > 60 mL/min (>60); Globulin 3.4 g/dL (1.7-4.1); Glucose 97 mg/dL (70-99); HDL Cholesterol 57 mg/dL (40-60); HEMOLYSIS < 15 (0-50); Potassium 5.0 mmol/L (3.4-5.1); Sodium 138 mmol/L (137-145); Total Protein 7.7 g/dL (6.3-8.2); Triglycerides 98 mg/dL (35-150); Uric Acid 6.0 mg/dL (2.5-6.2)
[2025-06-14 09:59] LABS: TSH w/ Reflex to FT4 2.44 uIU/mL (0.47-4.68)
== END ==
PROVIDERS: Family Provider Family Medicine; PCP Family Medicine; Referring Provider Family Medicine; Visit Provider Family Medicine
DX: E78.5 Hyperlipidemia, unspecified (principal); M79.7 Fibromyalgia; E79.0 Hyperuricemia without signs of inflammatory arthritis and tophaceous disease; Z79.899 Other long term (current) drug therapy
CPT/HCPCS: 36415; 80053; 80061; 84443; 84550; 85027

== ENCOUNTER → 2025-06-20 16:36 | Outpatient (CLI) | payer OTHER, SELFPAY ==
--- NOTE | 2025-06-20 16:37 | DI.RAD.S_ITS ---
PROCEDURE: XR SHOULDER LT MIN 2V INDICATIONS: left shoulder pain TECHNIQUE: 3 views of the shoulder were acquired. COMPARISON: [facility], CR, XR SHOULDER LT MIN 2V, 04/10/2023, 11:12. FINDINGS: Bones: No fractures or dislocations. No suspicious bony lesions. Visualized ribs appear intact. Soft tissues: No suspicious soft tissue calcifications. IMPRESSION: No acute bony abnormality. Dictated by: Jamey Claudio M.D. on 06/21/2025 at 22:39 Approved by: Jamey Claudio M.D. on 06/21/2025 at 22:47
== END ==
LOC: RAD 16:37
PROVIDERS: Family Provider Family Medicine; PCP Family Medicine; Referring Provider Family Medicine; Visit Provider Family Medicine
DX: M25.512 Pain in left shoulder (principal)
CPT/HCPCS: 73030

== ENCOUNTER 2025-06-30 13:09 | Emergency (ER) | payer OTHER, SELFPAY ==
[2025-06-30 13:39] VITALS: BP 180/84; PULSE 91; RESP 20; TEMP 37; O2SAT 100; BMI 24.7
--- NOTE | 2025-06-30 13:46 | DI.RAD.S_ITS ---
PROCEDURE: XR CHEST 1V INDICATIONS: Chest Pain TECHNIQUE: One view of the chest was acquired. COMPARISON: None. FINDINGS: Surgical changes and devices: None. Lungs and pleura: Lungs are clear. No pleural effusions or pneumothorax. Mediastinum: Mediastinal contours appear normal. Heart size is normal. Bones and chest wall: No suspicious bony lesions. Overlying soft tissues appear unremarkable. IMPRESSION: No acute cardiopulmonary pathology. Dictated by: Apolinar Carlos M.D. on 06/30/2025 at 14:35 Approved by: Apolinar Carlos M.D. on 06/30/2025 at 14:37
--- NOTE | 2025-06-30 13:58 | EKG_ITS ---
[place] [address] [place] [id number] Test Date: 2025-06-30 Pat Name: [facility] Department: [facility] Room: Gender: Female [employer]: deangelo : 1970 Requested By: Order Number: [id number] Reading MD: Erich Donald Measurements Intervals [place] Rate: 79 P: 57 MT: 142 QRS: 98 QRSD: 84 T: 7 QT: 380 QTc: 435 Interpretive Statements Normal sinus rhythm Possible Left atrial enlargement Rightward axis Electronically Signed On 07-08-2025 13:54:24 PDT by Erich Donald
[2025-06-30] MEDS: ASPIRIN 81 MG CHEW TAB 324 MG PO (14:03)
[2025-06-30 14:19] LABS: Add Manual Diff / Slide Review NO; Hematocrit 40.5 % (36-46); Hemoglobin 13.4 g/dL (12.0-16.0); Lymphocytes Absolute Auto 2400 /uL (1100-4500); Mean Corpuscular HGB Conc 33.2 % (30-36); Mean Corpuscular Hemoglobin 28.3 PG (26-34); Mean Corpuscular Volume 85.3 fL (80-100); Platelet Count 392 X10^3/uL (150-400)
[2025-06-30 14:28] LABS: INR 0.9 (0.9-1.3); Prothrombin Time 10.3 SECONDS (9.4-12.5)
[2025-06-30 14:31] LABS: PTT Partial Thromboplastin Tim 32 SECONDS (25.1-36.5)
[2025-06-30 14:32] LABS: Alanine Aminotransferase 19 IU/L (<35); Albumin 4.5 g/dL (3.5-5.0); Albumin Globulin Ratio 1.3 (1.0-2.8); Alkaline Phosphatase 97 U/L (38-126); Blood Urea Nitrogen 20 mg/dL (7-17); Calcium 9.3 mg/dL (8.4-10.2); Carbon Dioxide 26 mmol/L (22-32); Chloride 102 mmol/L (98-107); Creatine Kinase 27 U/L (30-135); Estimated Glomerular Filt Rate > 60 mL/min (>60); Globulin 3.5 g/dL (1.7-4.1); Glucose 95 mg/dL (70-99); HEMOLYSIS < 15 (0-50); Lipase 99 U/L (23-300); Magnesium 1.9 mg/dL (1.6-2.3); Potassium 4.3 mmol/L (3.4-5.1); Sodium 136 mmol/L (137-145); Total Protein 8.0 g/dL (6.3-8.2)
[2025-06-30 14:43] LABS: NT-proBNP (BNP-Adult 18+) < 20 pg/mL (<125); Troponin I < 0.012 ng/mL (0.01-0.034)
[2025-06-30 17:00] LABS: Troponin I < 0.012 ng/mL (0.01-0.034)
[2025-06-30 19:53] VITALS: O2SAT 98
[2025-06-30 19:57] VITALS: BP 147/91; PULSE 76; O2SAT 98
[2025-06-30 20:00] VITALS: BP 141/92; PULSE 77; O2SAT 100
--- NOTE | 2025-06-30 20:17 | ED_ITS ---
HPI - Chest Pain General Chief Complaint: Chest Pain Stated Complaint: Severe chest pain/shortness of breath Time Seen by Provider: 06/30/25 13:14 Mode of arrival: Ambulatory History of Present Illness HPI narrative: 55-year-old female history of dyslipidemia presents with midsternal chest pain radiating up to the throat region today described as being shot and expanding in the [place] sensation for few minutes at 11:30 a.m. this morning after getting a phone call. She now has residual heaviness but no active crushing chest pain at this time. She denies diaphoresis nausea vomiting leg pain leg swelling recent travel or trauma to the area. She has not take anything for it at this time but is currently being treated for sinusitis with 3rd round of antibiotics. She did have a stress test done last year that was normal. Other than what is stated 14 point review of system is negative. Related Data Previous Rx's ?Medication ?Instructions ?Recorded triamcinolone acetonide 0.1 % 1 applic topical BID #30 grams 06/18/24 topical cream fezolinetant 45 mg tablet 45 mg PO DAILY #90 tabs 04/0 12/25 albuterol sulfate 90 mcg/actuation 2 puff inhalation Q 4-6H PRN 06/20/25 aerosol inhaler shortness of breath or wheez ing #6.7 grams amoxicillin 875 mg-potassium 1 tab PO BID #20 tabs clavulanate 125 mg tablet fexofenadine 180 mg tablet 180 mg PO DAILY PRN allergy 06/20/25 symptoms #90 tabs fluticasone propionate 50 2 spray intranasal DAILY PRN 06/20/25 mcg/actuation nasal allergy symptoms #48 grams spray,suspension (Flonase Allergy Relief) prednisone 20 mg tablet 40 mg (2 x 20 mg) PO DAILY # 10 tabs 06/20/25 rosuvastatin 10 mg tablet 10 mg PO DAILY #90 tabs 06/01 12/25 Allergies Allergy/AdvReac Type Severity Reaction Status Date / Time cefaclor (From [facility]) AdvReac Verified 06/30/25 13:39 Sulfa (Sulfonamide AdvReac Verified 06/30/25 13:39 Antibiotics) Review of Systems Review of Systems ROS Unobtainable: All systems reviewed & are unremarkable except as noted in HPI and below Patient History Medical History Acute maxillary sinusitis Hyperlipidemia Fibromyalgia Vaginal delivery Uterine fibroid Hemorrhoid Abnormal Pap smear of cervix Surgical History History of tonsillectomy Family History Mother Afib Social History household members: spouse Smoking Status: Never smoker alcohol intake: current Smoking Status: Never smoker alcohol intake frequency: holidays/special occasions only Exam Narrative Exam Narrative: GENERAL: [55] year old patient appears stated age. Well-developed patient, in mild distress. HEAD: Atraumatic. Normocephalic. EYES: Pupils equal round and reactive. Extraocular motions intact. No scleral icterus. No injection or drainage. ENT: Nose without bleeding, purulent drainage. Throat without erythema, tonsillar hypertrophy or exudate. Airway patent. NECK: Trachea midline. Non tender CARDIOVASCULAR: Regular rate and rhythm without murmurs, gallops, or rubs. RESPIRATORY: Clear to auscultation. Breath sounds equal bilaterally. No wheezes, rales, or rhonchi. GASTROINTESTINAL: Abdomen soft, non-tender, nondistended. EXTREMITIES: No edema or joint tenderness. BACK: Nontender without deformity or crepitance. No flank tenderness. NEURO: AOx3. SKIN: No rash or erythema of visible areas Initial Vital Signs Initial Vital Signs: Vital Signs Temperature 98.6 F 06/30/25 13:39 Pulse Rate 91 H 06/30/25 13:39 Respiratory Rate 20 06/30/25 13:39 Blood Pressure 180/84 H 06/30/25 13:39 Pulse Oximetry 100 06/30/25 13:39 Oxygen Delivery Method Room Air 06/30/25 13:39 Scores HEART Score Heart Score history: Slightly Suspicious Heart Score EKG: Normal Heart Score Age: 45-64 years old Heart Score risk factors: 1-2 risk factors Heart Score troponin: < or = to normal limit Heart Score Total: 2 Course Orders Ordered: ED Orders 06/30/25 13:46 XR chest 1V Stat EKG-12 Lead Stat 06/30/25 14:00 Complete Blood Count AUTO DIFF Stat Comprehensive Metabolic Panel Stat Lipase Stat Magnesium Stat NT-proBNP (BNP-Adult 18+) Stat PTT Partial Thromboplastin Jose Stat Prothrombin Time INR Stat Troponin & CK Cardiac Panel Stat 06/30/25 16:22 Troponin I Stat Discontinued Medications Aspirin (Aspirin 81 Mg Chew Tab) 324 mg PO NOW ONE Stop: 06/30/25 13:46 Last Admin: 06/30/25 14:03 Dose: 324 mg Documented By: MARIELLE Vital Signs Vital signs: Vital Signs - 8 hr 06/30/25 13:39 Temperature 98.6 F Pulse Rate 91 H Respiratory Rate 20 Blood Pressure 180/84 H Pulse Oximetry 100 Oxygen Delivery Method Room Air MDM - Chest Pain Lab Data 06/30/25 14:00 06/30/25 14:00 Labs: Lab Results 06/30/25 06/30/25 Range/Units 14:00 16:22 WBC 8.2 (4.5-11.0) X10^3/uL RBC 4.75 (4.0-5.2) X10^6/uL Hgb 13.4 (12.0-16.0) g/dL Hct 40.5 (36-46) % MCV 85.3 (80-100) fL MCH 28.3 (26-34) PG MCHC 33.2 (30-36) % RDW 13.2 (11.6-14.8) % Plt Count 392 (150-400) X10^3/uL Neut % (Auto) 60.9 (50-75) % Lymph % (Auto) 29.0 (25-40) % [place] % (Auto) 6.5 (3-14) % Eos % (Auto) 2.4 (2-4) % Baso % (Auto) 1.2 (0-2) % Neut # (Auto) 5000 (0715-4344) /uL Lymph # (Auto) 2400 (2323-6271) /uL [place] # (Auto) 500 (0-900) /uL Eos # (Auto) 200 (0-450) /uL Baso # (Auto) 100 (0-100) /uL PT 10.3 (9.4-12.5) SECONDS INR 0.9 (0.9-1.3) APTT 32 (25.1-36.5) SECONDS Sodium 136 L (137-145) mmol/L Potassium 4.3 (3.4-5.1) mmol/L Chloride 102 (98-107) mmol/L Carbon Dioxide 26 (22-32) mmol/L BUN 20 H (7-17) mg/dL Creatinine 0.82 (0.52-1.04) mg/dL Estimated GFR > 60 (>60) mL/min BUN/Creatinine Ratio 24.4 H (6-22) Glucose 95 (70-99) mg/dL Calcium 9.3 (8.4-10.2) mg/dL Magnesium 1.9 (1.6-2.3) mg/dL Total Bilirubin 0.6 (0.2-1.3) mg/dL AST 28 (14-36) IU/L ALT 19 (<35) IU/L Alkaline Phosphatase 97 (38-126) U/L Total Creatine Kinase 27 L (30-135) U/L Troponin I < 0.012 < 0.012 (0.01-0.034) ng/mL NT-Pro-B Natriuret Pep < 20 (<125) pg/mL Total Protein 8.0 (6.3-8.2) g/dL Albumin 4.5 (3.5-5.0) g/dL Globulin 3.5 (1.7-4.1) g/dL Albumin/Globulin Ratio 1.3 (1.0-2.8) Lipase 99 (23-300) U/L Imaging Data Chest x-ray: Radiologist's Impression: [address] [address] XRay Report Signed Patient: Laura Zhong MR#: [id number] : 1970 Acct:[id number] Age/Sex: 55 / F Date of Service: 06/30/25 Loc: ED Accession Number: [id number] Procedure: XR chest 1V Ordering Provider: Partha Paul MD PROCEDURE: XR CHEST 1V INDICATIONS: Chest Pain TECHNIQUE: One view of the chest was acquired. COMPARISON: None. FINDINGS: Surgical changes and devices: None. Lungs and pleura: Lungs are clear. No pleural effusions or pneumothorax. Mediastinum: Mediastinal contours appear normal. Heart size is normal. Bones and chest wall: No suspicious bony lesions. Overlying soft tissues appear unremarkable. IMPRESSION: No acute cardiopulmonary pathology. Extremity x-ray #1: Radiologist's Impression: [address] [address] Nuclear Medicine Report Signed Patient: Laura Zhong MR#: [id number] : 1970 Acct:[id number] Age/Sex: 54 / F Date of Service: 07/13/24 Loc: DI Accession Number: [id number] Procedure: Exercise treadmill NON NUC Ordering Provider: Marquise Emmanuel MD DATE OF SERVICE: 07/13/2024 PROCEDURE: Exercise stress test. INDICATIONS: Shortness of breath. CARDIAC STRESS: The patient underwent exercise stress test under the supervision of an attending staff using standard Butch protocol. She walked on Butch protocol for 7 minutes and 19 seconds, achieved maximum heart rate of 172, which was 102% of target heart rate. Resting blood pressure 133/100 and peak blood pressure 180/88 mmHg. SILVERIO positive 4%. Achieved 7.3 METs of workload. Baseline rhythm is sinus with nonspecific ST-T changes. During stress, patient remained having nonspecific ST-T changes including some horizontal upsloping ST depression in inferior leads in V4 to V6, but not convincing for inducible ischemia. Occasional PVCs including rare ventricular couplets. No ventricular tachycardia. She had shortness of breath during exercise. CONCLUSION: Exercise stress test did not reveal any convincing ischemic changes. The patient has baseline nonspecific ST-T changes which remained persistent during stress. Diminished exercise tolerance. Normal hemodynamic response. Occasional PVCs including rare ventricular couplets. No ventricular tachycardia. She had shortness of breath on exertion. ECG Data Interpretation: NSR HR 79 KS 142 QRS [address]-t wave change MDM Narrative Medical decision making narrative: Vital signs, nurse triage note, medication list, previous ER visits, and all imaging studies reviewed. 2 sets troponin normal EKG sinus rhythm no STT wave changes. Heart score 2 chest x-ray did not show any acute process. Differential diagnosis STEMI NSTEMI anxiety GERD chest wall pain. Outpatient follow up PCP for further workup and continuity of care. Discharge Plan Departure Patient Disposition: Home Clinical Impression: Chest pain Instructions: DI for Chest Pain Activity Restrictions/Additional Instructions: Return with new or worsening symptoms. Follow up with PCP for continuity of care and further workup. Prescriptions: No Action fezolinetant 45 mg tablet 45 mg PO DAILY Qty: 90 3RF triamcinolone acetonide 0.1 % cream 1 applic topical BID Qty: 30 1RF Rx Instructions: apply thin layer to affected area on neck for up to two weeks amoxicillin-pot clavulanate 875-125 mg tablet 1 tab PO BID Qty: 20 0RF prednisone 20 mg tablet 40 mg PO DAILY Qty: 10 0RF rosuvastatin 10 mg tablet 10 mg PO DAILY Qty: 90 2RF fluticasone propionate [Flonase Allergy Relief] 50 mcg/actuation spray,suspension 2 spray intranasal DAILY PRN (Reason: allergy symptoms) Qty: 48 3RF Rx Instructions: administer into each nostril fexofenadine 180 mg tablet 180 mg PO DAILY PRN (Reason: allergy symptoms) Qty: 90 3RF albuterol sulfate 90 mcg/actuation HFA aerosol inhaler 2 puff inhalation Q4-6H PRN (Reason: shortness of breath or wheezing) Qty: 6.7 11RF Referrals: Marquise Emmanuel MD [Primary Care Provider, Family Practice] Stand Alone Forms: Patient Portal/API
--- NOTE | 2025-06-30 20:24 | PC.NURSE ---
IV placed by another nurse
[2025-06-30 20:30] VITALS: BP 181/101; PULSE 87; RESP 18; O2SAT 99
[2025-06-30 20:49] VITALS: BP 173/101; PULSE 88; RESP 14; O2SAT 99
== END 2025-06-30 20:51 | disposition home or self-care (01) ==
PROVIDERS: Emergency Medicine; Emergency Provider Family Medicine; Family Provider Family Medicine; PCP Family Medicine
DX: R07.9 Chest pain, unspecified (principal)
CPT/HCPCS: 36415; 71045; 80053; 82550; 83690; 83735; 83880; 84484; 85025; 85610; 85730; 93005; 99283; 99284

== ENCOUNTER → 2025-09-23 09:05 | Outpatient (CLI) | payer OTHER, SELFPAY ==
[2025-09-23 10:03] LABS: Alanine Aminotransferase 18 IU/L (<35); Albumin 4.4 g/dL (3.5-5.0); Albumin Globulin Ratio 1.4 (1.0-2.8); Alkaline Phosphatase 90 U/L (38-126); Blood Urea Nitrogen 13 mg/dL (7-17); Calcium 9.5 mg/dL (8.4-10.2); Carbon Dioxide 28 mmol/L (22-32); Chloride 101 mmol/L (98-107); Cholesterol 150 mg/dL (140-199); Estimated Glomerular Filt Rate > 60 mL/min (>60); Globulin 3.1 g/dL (1.7-4.1); Glucose 95 mg/dL (70-99); HDL Cholesterol 68 mg/dL (40-60); HEMOLYSIS < 15 (0-50); Potassium 4.3 mmol/L (3.4-5.1); Sodium 137 mmol/L (137-145); Total Protein 7.5 g/dL (6.3-8.2); Triglycerides 90 mg/dL (35-150)
== END ==
PROVIDERS: PCP Family Medicine; Referring Provider Family Medicine; Visit Provider Family Medicine
DX: E78.5 Hyperlipidemia, unspecified (principal)
CPT/HCPCS: 36415; 80053; 80061

== ENCOUNTER → 2025-10-13 09:23 | Outpatient (CLI) | payer OTHER, SELFPAY ==
--- NOTE | 2025-10-13 09:24 | DI.MG.S_ITS ---
MM diagnostic mammo BI: 10/13/2025. BI-RADS: 1 CLINICAL: 55-year old female for bilateral diagnostic mammogram. Tyrer-Cuzick lifetime risk of 4.7%. No personal or first-degree family history of breast cancer. The patient reports intermittent, nonfocal pain (3 months) in both breasts. PRIOR EXAMS: 10/18/2024, 10/17/2023, 10/14/2022, 10/06/2021, 10/16/2020, 02/28/2020, 02/16/2020. MAMMOGRAPHY TECHNIQUE: 2D and 3D (tomosynthesis) digital mammographic views obtained, with additional images as needed for full coverage. Current study was also evaluated with a Computer Aided Detection (CAD) system. DENSITY B. There are scattered areas of fibroglandular density. MAMMOGRAPHY FINDINGS Bilateral: No suspicious mass, asymmetry, microcalcification, or other abnormality seen. IMPRESSION: * No evidence of malignancy. RECOMMENDATIONS Bilateral * Diffuse, non-focal symptoms, such as pain or fullness are typically benign. Clinical follow-up is recommended, and further management of these symptoms should be based on the results of clinical evaluation. If diffuse symptoms persist or become more focal in nature, further clinical evaluation should be considered. * Annual screening mammography. COMMENTS: Findings and recommendations were conveyed to the patient during today's evaluation. OVERALL ASSESSMENT CATEGORY BI-RADS-1: Negative. The [employer] recommends annual screening mammography beginning at age 40 for women with average risk of breast cancer. ELECTRONICALLY SIGNED: Melia Cook M.D. on 10/13/2025 at 12:15:34 PM PT Interpreting Station ID: [id number]
== END ==
LOC: MAMMO 09:24
PROVIDERS: PCP Family Medicine; Referring Provider Family Medicine; Visit Provider Family Medicine
DX: N64.4 Mastodynia (principal)
CPT/HCPCS: 77066; G0279

== ENCOUNTER 2025-10-21 10:20 | Day surgery (SDC) | payer OTHER, SELFPAY ==
[2025-10-18 12:35] VITALS: BMI 25.5
--- NOTE | 2025-10-21 | PATH_ITS ---
[facility] Accession Number: [id number] No. of containers..02 Tissue . 01 Material submitted: . PART A: duodenum - DUODENUM PART B: gastrointestinal site - ANTRUM . 01 Diagnosis: A. DUODENUM, BIOPSY: Histologically unremarkable duodenal mucosa. Negative for villous blunting and intraepitheial lymphocytosis. Negative for dysplasia and malignancy. . B. STOMACH, ANTRUM, BIOPSY: Antral mucosa with mild chronic inflammation. Negative for Helicobacter organisms on IHC stain. Negative for intestinal metaplasia, dysplasia, and malignancy. [facility] 11/01/2025 1704 Local . 01 Comment: Immunohistochemistry for Helicobacter organisms is performed on block B1 and is negative. . - Technical Note: The immunohistochemical stains reported were performed with appropriately staining controls at [facility] ([address], [facility] [address]). This test was developed and performance characteristics validated by [facility]. It has not been cleared or approved by the Food and Drug Administration. . 01 Electronically signed: . Ly Carroll DO, Pathologist NPI- [id number] . 01 Gross description: . Received two formalin-filled containers, both labeled with the patient's name: . A. In a container labeled duodenum are two fragments of pool, soft tissue which range in size from 0.2 x 0.2 x 0.2 cm to 0.3 x 0.2 x 0.2 cm. All fragments are totally submitted in cassette A. B. In a container labeled antrum. Specimen consists of two fragments of pool, soft tissue which range in size from 0.2 x 0.2 x 0.2 cm to 0.3 x 0.2 x 0.2 cm. All fragments are totally submitted in cassette B. ([id number]) /PATTIE 10/26/2025 2133 Local . 01 Pathologist provided ICD-10: R10.13 . 01 CPT . 128781, 531473, P62209 Specimen Comment: A courtesy copy of this report has been sent to [phone] Performed at: [address] [address], [place], [place] [id number] MD Clark Ocasio MD Phone: [phone]
[2025-10-21] MEDS: LACTATED RINGERS 1,000 ML 42 ML IV (11:11)
[2025-10-21 11:17] VITALS: BP 134/94; PULSE 88; RESP 18; TEMP 36.9; O2SAT 99
--- NOTE | 2025-10-21 11:43 | P.HP_ITS ---
History of Present Illness History of Present Illness Date Patient Seen: 10/21/25 Time Patient Seen: 11:44 Chief complaint: EGD w/poss bx Narrative: Laura is a 55 year woman with dysphagia. See the office note for details. [facility] Medical History (Updated 10/18/25 @ 12:35 by Altagracia Beck RN) GERD (gastroesophageal reflux disease) Change in voice Carpal tunnel syndrome of right wrist Acute maxillary sinusitis Hyperlipidemia Fibromyalgia Vaginal delivery Uterine fibroid Hemorrhoid Abnormal Pap smear of cervix Surgical History History of tonsillectomy Family History Mother Afib Social History household members: spouse Smoking Status: Former smoker alcohol intake: current Meds Home Medications and Allergies Home Medications ?Medication ?Instructions ?Recorded ?Confirmed ?Type triamcinolone acetonide 0.1 % 1 applic topical BID #30 grams 06/18/24 10/21/25 Rx topical cream fezolinetant 45 mg tablet 45 mg PO DAILY #90 tabs 04/0 12/2510/21/25 Rx albuterol sulfate 90 mcg/actuation 2 puff inhalation Q 4-6H PRN 06/20/25 10/21/25 Rx aerosol inhaler shortness of breath or wheez ing #6.7 grams fexofenadine 180 mg tablet 180 mg PO DAILY PRN allergy 06/20/25 10/21/25 Rx symptoms #90 tabs fluticasone propionate 50 2 spray intranasal DAILY PRN 06/20/25 10/21/25 Rx mcg/actuation nasal allergy symptoms #48 grams spray,suspension (Flonase Allergy Relief) rosuvastatin 10 mg tablet 10 mg PO DAILY #90 tabs /2 12/2510/21/25 Rx Allergies Allergy/AdvReac Type Severity Reaction Status Date / Time cefaclor (From Ceclor) AdvReac Verified 08/26/25 14:51 Sulfa (Sulfonamide AdvReac Verified 08/26/25 14:51 Antibiotics) Exam Vital Signs (past 8 hours): - 10/21/25 11:17 Temperature 98.4 F Pulse Rate 88 Respiratory Rate 18 Blood Pressure 134/94 H Pulse Oximetry 99 Oxygen Delivery Method Room Air Oxygen Delivery Method Room Air Const General: healthy appearing Assessment & Plan Assessment and plan (1) Dysphagia: Qualifiers: Dysphagia type: esophageal phase Qualified Code(s): R13.19 - Other dysphagia Status: Acute Plan Esophagogastroduodenoscopy for dysphagia Time-Based Coding :: [TOTAL MINUTES] spent with patient and on the chart (including review of chart, obtaining history, exam, reviewing outside data, placing orders, documenting exam and treatment plan, and counseling patient) on [DATE]. [employer] Att[employer] Document charge(s): No
[2025-10-21 12:53] VITALS: BP 106/70; PULSE 88; RESP 19; TEMP 36.2; O2SAT 98
--- NOTE | 2025-10-21 12:53 | PM.OP.EGD ---
Operative Date/Time/Diagnoses Date of procedure: 10/21/25 Time of procedure: 12:54 Pre-op diagnosis: Dysphagia Post-op diagnosis: same Procedure & Clinicians Study performed: Esophagogastroduodenoscopy Same procedure(s) as scheduled: Yes Surgeon: Jeffrey Joshi Anesthesia Type: MAC +/- Procedure Notes Procedure in detail: Surgeon: Jeffrey Joshi MD Anesthesia: Esha Finn CRNA A timeout was performed. A bite blocked was placed. The patient was positioned in the left lateral decubitus position. Anesthesia was administered. The endoscope was inserted through the bite block and passed through the esophagus and stomach and into the duodenum. The duodenal mucosa appeared normal. Random biopsies were taken with cold forceps. The scope was withdrawn into the duodenal bulb and no abnormalities seen. The scope was withdrawn into the stomach. There was mild antritis and random biopsies were taken from the antrum with cold forceps. The rest of the stomach was normal. The scope was retroflexed and no hiatal hernia was seen. The scope was withdrawn into the esophagus and no abnormalities were noted in the esophagus. The scope was withdrawn. The patient was awakened and brought to recovery. Sedation time: 5 minutes Findings: Mild antritis Estimated Blood Loss: 5 Complications: none Post-procedure Disposition: PACU
[2025-10-21 12:55] VITALS: BP 109/99; PULSE 87; RESP 19; O2SAT 97
[2025-10-21 13:01] VITALS: BP 112/69; PULSE 81; RESP 18; O2SAT 97
[2025-10-21 13:05] VITALS: BP 109/64; PULSE 80; RESP 24; O2SAT 98
[2025-10-21 13:10] VITALS: BP 123/86; PULSE 80; RESP 19; O2SAT 98
== END 2025-10-21 13:25 | disposition home or self-care (01) ==
PROVIDERS: PCP Family Medicine; Referring Provider Surgery; Visit Provider Surgery
PROC: 0DJ08ZZ Inspection of Upper Intestinal Tract, Via Natural or Artificial Opening Endoscopic (ICD-10-PCS; CPT 43239; principal; 2025-10-21 11:30)
DX: K29.50 Unspecified chronic gastritis without bleeding (principal); R13.19 Other dysphagia; E78.5 Hyperlipidemia, unspecified; Z87.891 Personal history of nicotine dependence
CPT/HCPCS: 43239; J2405; J2704; J7120